=== PATIENT | female | born 1970 | race Caucasian/White ===

== ENCOUNTER 2018-10-23 13:30 | Emergency (ER) | payer OTHER ==
[2018-10-23] MEDS: ONDANSETRON (ODT) 4 MG TAB ODT (14:42)
[2018-10-23] MEDS: HYDROCODONE/APAP (5/325) TAB PO (14:42)
== END 2018-10-23 15:00 | disposition home or self-care (01) ==
LOC: FTE 13:30
DX: M54.9 Dorsalgia, unspecified (principal)
CPT/HCPCS: 99283; Z7610